=== PATIENT | female | born 1970 | race American Indian/Alaskan Native ===

== ENCOUNTER 2021-01-05 08:16 | Emergency (ER) | payer MEDICARE ==
[2021-01-05] MEDS ORDERED: KETOROLAC 30 MG/1 ML INJ IV ONE (09:39)
[2021-01-05] MEDS ORDERED: SODIUM CHLORIDE 0.9% 1000 ML 1,000 ML IV ONE (09:39)
[2021-01-05] MEDS ORDERED: diphenhydrAMINE 50 MG/ML VIAL IV ONE (09:40)
[2021-01-05] MEDS ORDERED: METOCLOPRAMIDE 10 MG/2 ML INJ IV ONE (09:40)
[2021-01-05 10:23] LABS: Basophils % (Auto) 0.2 % (0.0-1.8); Eosinophils # (Auto) 0.1 K/mm3 (0.0-0.4); Eosinophils % (Auto) 1.2 % (0.0-4.3); Hematocrit 41.7 % (30.3-42.9); Hemoglobin 14.2 gm/dl (10.1-14.3); Lymphocytes # (Auto) 1.4 K/mm3 (1.2-5.4); Mean Corpuscular HGB Conc 34 % (30-34); Mean Corpuscular Volume 87 fl (79-97); Monocytes # (Auto) 0.5 K/mm3 (0.0-0.8); Platelet Count 158 K/mm3 (140-440); Red Cell Distribution Width 13.5 % (13.2-15.2)
[2021-01-05 11:09] LABS: Alanine Aminotransferase 19 units/L (7-56); Albumin 3.9 g/dL (3.9-5); Blood Urea Nitrogen 11 mg/dL (7-17); Calcium 9.4 mg/dL (8.4-10.2); Hemolysis Index 111
[2021-01-05 11:10] LABS: BUN/Creatinine Ratio 22
[2021-01-05 11:13] LABS: Bacteria,Urine 4+ /HPF (Negative); Bilirubin,Urine NEG (Negative); Blood,Urine LG (Negative); Color,Urine Yellow (Yellow); Protein,Urine <15 mg/dL mg/dL (Negative)
[2021-01-05 11:14] LABS: WBC,Urine > 182.0 /HPF (0.0-6.0)
[2021-01-05] MEDS ORDERED: cefTRIAXone/NS 1 GM/50 ML 1 GM/50 ML BAG IV ONE (11:17)
--- NOTE | 2021-01-05 12:13 | Cat Scan Report ---
CT abdomen pelvis w con INDICATION / CLINICAL INFORMATION: abd pain and flank pain OMNIPAQUE 300 100ML. TECHNIQUE: Axial CT imaging of abdomen and pelvis was obtained with IV contrast. Coronal and sagittal reformatte d imaging obtained and reviewed. All CT scans at this location are performed using CT dose reduction for ALARA by means of automated exposure control. COMPARISON: None available. FINDINGS: CT abdomen with contrast demonstrates normal appearance of the liver, spleen, pancreas, right kidney, and adrenal glands. 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 Left kidney is otherwise normal. Gallbladder is present. The gallbladder does contain a few small ga llstones but does not appear to be acutely inflamed. No biliary dilatation noted. CT pelvis with contrast demonstrates air within the urinary bladder. Please confirm that patient had bladder catheterization to account for this finding. No pelvic mass free fluid, or focal inflammatory changes noted. A normal appendix is present in the right lower quadrant. Large amount of stool seen throughout the colon. No evidence of fecal impaction. The remainder of the GI tract is unremarkable. Visualized lung bases are clear. No significant osseous abnormality noted., IMPRESSION: 1. Large amount of stool seen throughout the colon. No fecal impaction identified. 2. No acute finding within the abdomen or pelvis. 3. Cholelithiasis without CT evidence of acute cholecystitis. 4. There is air within the urinary bladder. Please confirm that the patient had bladder catheterizati on recently to account for this finding. Signer Name: Aislinn Koenig MD Signed: 01/05/2021 12:08 PM Workstation Name: [id number]
[2021-01-05 12:18] VITALS: BP 111/75
[2021-01-05] MEDS ORDERED: INSULIN REGULAR, HUMAN 100 UNITS/1 ML IV ONE (12:22)
[2021-01-05] MEDS ORDERED: LACTULOSE 20 GM/30 ML ORAL LIQD PO ONE (12:23)
--- NOTE | 2021-01-05 14:02 | Emergency Department Report ---
ED Abdominal Pain HPI - General Chief Complaint: Abdominal Pain Stated Complaint: BACK/STOMACH PAIN Time Seen by Provider: 01/05/21 09:23 Source: patient Mode of arrival: Ambulatory Limitations: No Limitations - History of Present Illness Initial Comments: This is a 50-year-old female nontoxic, well nourished in appearance, no acute signs of distress presents to the ED with c/o of nausea and left flank pain and abdominal cramping x several days. Patient denies any vomiting. Patient describes abdominal pain as cramping and 3/10 diffuse. Patient denies chest pain, short of breath, fever, hemoptysis, blood in stool, chills, headache, stiff neck, numbness or tingling. Stated has some dysuria. Patient denies any diarrhea. Patient agrees to constipation. Denies any blood in stool. Patient denies any recent travels. Patient stated allergies to hydrocodone and latex. Past medical history includes diabetes which he takes insulin for and has taken today. MD Complaint: abdominal pain, flank pain Location: diffuse Radiation: none Migration to: no migration Severity: mild Severity scale (0 -10): 3 Quality: cramping Consistency: intermittent Improves With: nothing Worsens With: nothing Associated Symptoms: nausea, constipation, dysuria. denies: vomiting, diarrhea, fever, chills, hematemesis, hematochezia, melena, hematuria, anorexia, syncope - Related Data Previous Rx's Medication Instructions Recorded Last Taken Type Ciprofloxacin HCl 500 mg PO BID #20 tablet 01/05/21 Unknown Rx Docusate Sodium [Colace] 100 mg PO DAILY PRN #10 capsule 01/05/21 Unknown Rx Allergies Allergy/AdvReac Type Severity Reaction Status Date / Time hydrocodone Allergy Hives Verified 01/05/21 08:39 latex Allergy Hives Verified 01/05/21 08:39 ED Review of Systems ROS: Stated complaint: BACK/STOMACH PAIN Other details as noted in HPI Comment: All other systems reviewed and negative Constitutional: denies: chills, fever Eyes: denies: eye pain, eye discharge, vision change ENT: denies: ear pain, throat pain Respiratory: denies: cough, shortness of breath, wheezing Cardiovascular: denies: chest pain, palpitations Endocrine: no symptoms reported Gastrointestinal: abdominal pain, nausea, constipation. denies: vomiting, diarrhea, hematemesis, melena, hematochezia Genitourinary: dysuria. denies: urgency, frequency, hematuria, discharge, abnormal menses, dyspareunia Musculoskeletal: denies: back pain, joint swelling, arthralgia Skin: denies: rash, lesions Neurological: denies: headache, weakness, paresthesias Psychiatric: denies: anxiety, depression Hematological/Lymphatic: denies: easy bleeding, easy bruising ED Past Medical Hx - Past Medical History Previous Medical History?: Yes Hx CVA: Yes (2019) Hx Diabetes: Yes Additional medical history: heart palpitations, Hypothyroidism - Surgical History Past Surgical History?: Yes Additional Surgical History: x 3, Partial thyroidectomy - Social History Smoking Status: Never Smoker Substance Use Type: Prescribed - Medications Home Medications: Home Medications Medication Instructions Recorded Confirmed Last Taken Type Ciprofloxacin HCl 500 mg PO BID #20 tablet 01/05/21 Unknown Rx Docusate Sodium [Colace] 100 mg PO DAILY PRN #10 capsule 01/05/21 Unknown Rx ED Physical Exam - General Limitations: No Limitations General appearance: alert, in no apparent distress - Head Head exam: Present: atraumatic, normocephalic - Eye Eye exam: Present: normal appearance - Neck Neck exam: Present: normal inspection, full ROM. Absent: tenderness, meningismus, lymphadenopathy - Respiratory Respiratory exam: Present: normal lung sounds bilaterally. Absent: respiratory distress, wheezes, rales, rhonchi, chest wall tenderness, accessory muscle use, decreased breath sounds, prolonged expiratory - Cardiovascular Cardiovascular Exam: Present: regular rate, normal rhythm, normal heart sounds. Absent: irregular rhythm, systolic murmur, diastolic murmur, rubs, gallop - GI/Abdominal GI/Abdominal exam: Present: soft, tenderness, normal bowel sounds. Absent: distended, guarding, rebound, rigid, diminished bowel sounds - Extremities Exam Extremities exam: Present: normal inspection, full ROM - Back Exam Back exam: Present: normal inspection, full ROM. Absent: tenderness, CVA tenderness (R), CVA tenderness (L), muscle spasm, paraspinal tenderness, vertebral tenderness, rash noted - Neurological Exam Neurological exam: Present: alert, oriented X3 - Psychiatric Psychiatric exam: Present: normal affect, normal mood - Skin Skin exam: Present: warm, dry, intact, normal color. Absent: rash ED Course Vital Signs 01/05/21 01/05/2101/05/21 08:43 12:16 12:24 Temperature 98 F 98.5 F Pulse Rate 103 H 92 H Respiratory 20 14 Rate Blood Pressure 120/79 Blood Pressure 111/75 [Left] O2 Sat by Pulse 99 99 99 Oximetry - Reevaluation(s) Reevaluation #1: 01/05/21 14:06 Patient is speaking in full sentences with no signs of distress noted. ED Medical Decision Making - Lab Data Result diagrams: 01/05/21 09:45 01/05/21 09:45 Lab Results 01/05/21 01/05/21 01/05/21 Range/Units 09:45 09:45 09:45 WBC 7.6 (4.5-11.0) K/mm3 RBC 4.80 (3.65-5.03) M/mm3 Hgb 14.2 (10.1-14.3) gm/dl Hct 41.7 (30.3-42.9) % MCV 87 (79-97) fl MCH 30 (28-32) pg MCHC 34 (30-34) % RDW 13.5 (13.2-15.2) % Plt Count 158 (140-440) K/mm3 Lymph % (Auto) 18.0 (13.4-35.0) % [place] % (Auto) 7.0 (0.0-7.3) % Eos % (Auto) 1.2 (0.0-4.3) % Baso % (Auto) 0.2 (0.0-1.8) % Lymph # (Auto) 1.4 (1.2-5.4) K/mm3 [place] # (Auto) 0.5 (0.0-0.8) K/mm3 Eos # (Auto) 0.1 (0.0-0.4) K/mm3 Baso # (Auto) 0.0 (0.0-0.1) K/mm3 Seg Neutrophils % 73.6 H (40.0-70.0) % Seg Neutrophils # 5.6 (1.8-7.7) K/mm3 Sodium 137 (137-145) mmol/L Potassium 4.8 (3.6-5.0) mmol/L Chloride 102.1 (98-107) mmol/L Carbon Dioxide 23 (22-30) mmol/L Anion Gap 17 mmol/L BUN 11 (7-17) mg/dL Creatinine 0.5 L (0.6-1.2) mg/dL Estimated GFR > 60 ml/min BUN/Creatinine Ratio 22 % Glucose 360 H (65-100) mg/dL POC Glucose (70-105) mg/dL Calcium 9.4 (8.4-10.2) mg/dL Total Bilirubin 0.30 (0.1-1.2) mg/dL AST 21 (5-40) units/L ALT 19 (7-56) units/L Alkaline Phosphatase 81 (35-129) units/L Total Protein 7.6 (6.3-8.2) g/dL Albumin 3.9 (3.9-5) g/dL Albumin/Globulin Ratio 1.1 % Lipase 19 (13-60) units/L HCG, Qual Negative (Negative) Urine Color (Yellow) Urine Turbidity (Clear) Urine pH (5.0-7.0) Ur Specific [place] (1.003-1.030) Urine Protein (Negative) mg/dL Urine Glucose (UA) (Negative) mg/dL Urine Ketones (Negative) mg/dL Urine Blood (Negative) Urine Nitrite (Negative) Urine Bilirubin (Negative) Urine Urobilinogen (<2.0) mg/dL Ur Leukocyte Esterase (Negative) Urine WBC (Auto) (0.0-6.0) /HPF Urine RBC (Auto) (0.0-6.0) /HPF U Epithel Cells (Auto) (0-13.0) /HPF Urine Bacteria (Auto) (Negative) /HPF Urine WBC Clumps /HPF Urine Yeast (Budding) /HPF 01/05/21 01/05/21 Range/Units 10:52 12:30 WBC (4.5-11.0) K/mm3 RBC (3.65-5.03) M/mm3 Hgb (10.1-14.3) gm/dl Hct (30.3-42.9) % MCV (79-97) fl MCH (28-32) pg MCHC (30-34) % RDW (13.2-15.2) % Plt Count (140-440) K/mm3 Lymph % (Auto) (13.4-35.0) % [place] % (Auto) (0.0-7.3) % Eos % (Auto) (0.0-4.3) % Baso % (Auto) (0.0-1.8) % Lymph # (Auto) (1.2-5.4) K/mm3 [place] # (Auto) (0.0-0.8) K/mm3 Eos # (Auto) (0.0-0.4) K/mm3 Baso # (Auto) (0.0-0.1) K/mm3 Seg Neutrophils % (40.0-70.0) % Seg Neutrophils # (1.8-7.7) K/mm3 Sodium (137-145) mmol/L Potassium (3.6-5.0) mmol/L Chloride (98-107) mmol/L Carbon Dioxide (22-30) mmol/L Anion Gap mmol/L BUN (7-17) mg/dL Creatinine (0.6-1.2) mg/dL Estimated GFR ml/min BUN/Creatinine Ratio % Glucose (65-100) mg/dL POC Glucose 243 H (70-105) mg/dL Calcium (8.4-10.2) mg/dL Total Bilirubin (0.1-1.2) mg/dL AST (5-40) units/L ALT (7-56) units/L Alkaline Phosphatase (35-129) units/L Total Protein (6.3-8.2) g/dL Albumin (3.9-5) g/dL Albumin/Globulin Ratio % Lipase (13-60) units/L HCG, Qual (Negative) Urine Color Yellow (Yellow) Urine Turbidity Cloudy (Clear) Urine pH 6.0 (5.0-7.0) Ur Specific [place] 1.027 (1.003-1.030) Urine Protein <15 mg/dl (Negative) mg/dL Urine Glucose (UA) >=500 (Negative) mg/dL Urine Ketones Neg (Negative) mg/dL Urine Blood Lg (Negative) Urine Nitrite Neg (Negative) Urine Bilirubin Neg (Negative) Urine Urobilinogen 2.0 (<2.0) mg/dL Ur Leukocyte Esterase Lg (Negative) Urine WBC (Auto) > 182.0 H (0.0-6.0) /HPF Urine RBC (Auto) 11.0 (0.0-6.0) /HPF U Epithel Cells (Auto) 20.0 H (0-13.0) /HPF Urine Bacteria (Auto) 4+ (Negative) /HPF Urine WBC Clumps 2+ /HPF Urine Yeast (Budding) 2+ /HPF - Radiology Data [facility] [address] [place] [address] Cat Scan Report Signed Patient: LEONIDAS RINCON MR# : [id number] : 1970 Acct:[id number] Age/Sex: 50 / F ADM Date: 01/05/21 Loc: ED Attending Dr: Ordering Physician: FELTON BENSON NP Date of Service: 01/05/21 Procedure(s): CT abdomen pelvis w con Accession Number(s): [id number] cc: FELTON BENSON NP CT abdomen pelvis w con INDICATION / CLINICAL INFORMATION: abd pain and flank pain OMNIPAQUE 300 100ML. TECHNIQUE: Axial CT imaging of abdomen and pelvis was obtained with IV contrast. Coronal and sagittal reformatted imaging obtained and reviewed. All CT scans at this location are performed using CT dose reduction for ALARA by means of automated exposure control. COMPARISON: None available. FINDINGS: CT abdomen with contrast demonstrates normal appearance of the liver, spleen, pancreas, right kidney, and adrenal glands. 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 Left kidney is otherwise normal. Gallbladder is present. The gallbladder does contain a few small gallstones but does not appear to be acutely inflamed. No biliary dilatation noted. CT pelvis with contrast demonstrates air within the urinary bladder. Please confirm that patient had bladder catheterization to account for this finding. No pelvic mass free fluid, or focal inflammatory changes noted. A normal appendix is present in the right lower quadrant. Large amount of stool seen throughout the colon. No evidence of fecal impaction. The remainder of the GI tract is unremarkable. Visualized lung bases are clear. No significant osseous abnormality noted., IMPRESSION: 1. Large amount of stool seen throughout the colon. No fecal impaction identified. 2. No acute finding within the abdomen or pelvis. 3. Cholelithiasis without CT evidence of acute cholecystitis. 4. There is air within the urinary bladder. Please confirm that the patient had bladder catheterization recently to account for this finding. Signer Name: Aislinn Koenig MD Signed: 01/05/2021 12:08 PM Workstation Name: [id number] Transcribed By: Dictated By: Aislinn Koenig MD Electronically Authenticated By: Aislinn Koenig MD Signed Date/Time: 01/05/21 1208 DD/ 1205 TD/TT: - Medical Decision Making This is a 50-year-old female that presents with UTI and constipation. Patient is stable and was examined by me. Negative signs of symptoms of appendicitis. Labs obtained. UA obtained. CT of abdomen obtained and dictated by the radiologist. Patient is notified of the report with no questions noted by the patient. Vital signs are stable prior to discharge. Patient received medical treatment in the ED which patient stated symptoms has resovled and subsided. Was instructed note to operate any machinery due to possible drowsiness and stated someone will drive the patient home. A by mouth challenge has been obtained and patient tolerated well with no nausea vomiting. Patient stated had a large bowel movement in the ED after treatment. Patient was also instructed to Follow-up with a primary care doctor in 3-5 days or if symptoms worsen and continue return to emergency room as soon as possible. At time of discharge, the patient does not seem toxic or ill in appearance. No acute signs of distress noted. Patient agrees to discharge treatment plan of care. No further questions noted by the patient. Critical care attestation.: If time is entered above; I have spent that time in minutes in the direct care of this critically ill patient, excluding procedure time. ED Disposition Clinical Impression: Constipation Qualifiers: Constipation type: unspecified constipation type Qualified Code(s): K59.00 - Constipation, unspecified UTI (urinary tract infection) Qualifiers: Urinary tract infection type: acute cystitis Hematuria presence: without hematu jayy Qualified Code(s): N30.00 - Acute cystitis without hematuria Disposition: HOME / SELF CARE / HOMELESS Is pt being admited?: No Does the pt Need Aspirin: No Condition: Stable Instructions: Abdominal Pain (ED), Constipation, Adult, Urinary Tract Infection, Adult, [id number], High-Fiber Diet Additional Instructions: Follow-up with a primary care doctor in 3-5 days or if symptoms worsen and continue return to emergency room as soon as possible. Prescriptions: Ciprofloxacin HCl 500 mg PO BID #20 tablet Docusate Sodium [Colace] 100 mg PO DAILY PRN #10 capsule PRN Reason: Constipation Referrals: HARPER PALAFOX [Other] - 3-5 Days PRIMARY CAREMD [Referring] - 3-5 Days MYRA MENDOZA MD [Staff Physician] - 3-5 Days Time of Disposition: 14:14
[2021-01-05] MEDS ORDERED: MAGNESIUM CITRATE 300 ML ORAL LIQD PO ONE (14:08)
== END 2021-01-05 14:21 | disposition home or self-care (01) ==
LOC: ED 08:16
DX: N39.0 Urinary tract infection, site not specified (principal); K59.00 Constipation, unspecified; Z86.73 Personal history of transient ischemic attack (TIA), and cerebral infarction without residual deficits; E11.8 Type 2 diabetes mellitus with unspecified complications; R00.2 Palpitations; E03.9 Hypothyroidism, unspecified; Z98.890 Other specified postprocedural states; Z88.5 Allergy status to narcotic agent; Z91.040 Latex allergy status
CPT/HCPCS: 36415; 74177; 80053; 81001; 82962; 83690; 84703; 85025; 96361; 96365; 96375; 99284; J0696; J1200; J1885; J2765; J7030; Q9967

== ENCOUNTER 2021-04-17 11:30 | Emergency (ER) | payer MEDICARE ==
[2021-04-17] MEDS ORDERED: ACETAMINOPHEN 325 MG TAB PO STA (14:09)
[2021-04-17] MEDS ORDERED: ALPRAZolam 0.5 MG TAB PO ONE (14:10)
--- NOTE | 2021-04-17 14:10 | Emergency Department Report ---
ED General Adult HPI - General Chief complaint: Arrhythmia/Palpitations Stated complaint: BODY CRAMPS/ HEART RACING PUI?: No Time Seen by Provider: 04/17/21 13:56 Source: patient, RN notes reviewed Mode of arrival: Ambulatory Limitations: No Limitations - History of Present Illness Initial comments: This patient is a pleasant and cooperative 50-year-old female, who to me endorses a past medical history of diabetes, hypertension, and hypothyroidism. She is also COVID-19 vaccinated. The patient presents to the ER today with complaint of palpitations, and cramping on her bilateral lower abdominal quadrants, bilateral hands and forearms, and bilateral lower extremities. The patient currently denies severe headache, neck pain, denies chest pain, denies upper abdominal pain, denies vomiting, diaphoresis, exertional shortness of breath, loss of taste and smell. She also denies Covid symptoms and urinary symptoms. She is not really taking anything ahym-byw-fpudntc for this. She reports that her medications have not recently been changed or adjusted. She reports that she feels a little bit anxious, but otherwise back to her baseline. Patient specifically denies travel, surgery, immobilization, , oral contraceptive use, DVT/PE risk factors. -: Gradual, days(s) Location: left, right, upper extremity, lower extremity Quality: aching, other (Aching and cramping) Consistency: intermittent Improves with: none Worsens with: none - Related Data Previous Rx's Medication Instructions Recorded Last Taken Type Ciprofloxacin HCl 500 mg PO BID #20 tablet 01/05/21 Unknown Rx Docusate Sodium [Colace] 100 mg PO DAILY PRN #10 capsule 01/05/21 Unknown Rx Allergies Allergy/AdvReac Type Severity Reaction Status Date / Time hydrocodone Allergy Hives Verified 04/17/21 12:22 latex Allergy Hives Verified 04/17/21 12:22 ED Review of Systems ROS: Stated complaint: BODY CRAMPS/ HEART RACING Other details as noted in HPI Constitutional: denies: fever Eyes: denies: eye discharge ENT: denies: epistaxis Respiratory: denies: cough Cardiovascular: palpitations. denies: chest pain Gastrointestinal: denies: nausea, vomiting, diarrhea, hematemesis, melena, hematochezia Genitourinary: denies: dysuria Musculoskeletal: arthralgia, myalgia Neurological: weakness. denies: numbness, paresthesias Psychiatric: anxiety ED Past Medical Hx - Past Medical History Hx CVA: Yes (2019) Hx Diabetes: Yes Additional medical history: heart palpitations, Hypothyroidism - Surgical History Additional Surgical History: x 3, Partial thyroidectomy - Social History Smoking Status: Never Smoker Substance Use Type: Prescribed - Medications Home Medications: Home Medications Medication Instructions Recorded Confirmed Last Taken Type Ciprofloxacin HCl 500 mg PO BID #20 tablet 01/05/21 Unknown Rx Docusate Sodium [Colace] 100 mg PO DAILY PRN #10 capsule 01/05/21 Unknown Rx ED Physical Exam - General Limitations: No Limitations General appearance: alert, anxious - Head Head exam: Present: atraumatic, normocephalic - Eye Eye exam: Present: normal appearance, EOMI. Absent: nystagmus - ENT ENT exam: Present: normal exam, normal orophraynx, mucous membranes moist, normal external ear exam - Neck Neck exam: Present: normal inspection, full ROM. Absent: tenderness, meningismus - Respiratory Respiratory exam: Present: normal lung sounds bilaterally. Absent: respiratory distress, wheezes, rales, rhonchi, stridor, decreased breath sounds - Cardiovascular Cardiovascular Exam: Present: normal rhythm, tachycardia. Absent: bradycardia, irregular rhythm, normal heart sounds, systolic murmur, diastolic murmur, rubs, gallop - GI/Abdominal GI/Abdominal exam: Present: soft, normal bowel sounds. Absent: distended, tenderness, guarding, rebound, rigid, pulsatile mass - Extremities Exam Extremities exam: Present: normal inspection, full ROM, other (2+ pulses noted in the bilateral upper and lower extremities. There is no palpable cord. negative Homans sign. Muscular compartments are soft. The pelvis is stable.). Absent: pedal edema, calf tenderness - Back Exam Back exam: Present: normal inspection, full ROM. Absent: tenderness, CVA tenderness (R), CVA tenderness (L), paraspinal tenderness, vertebral tenderness - Neurological Exam Neurological exam: Present: alert, oriented X3, normal gait, reflexes normal, other (No facial droop. Tongue midline. Extraocular movements intact bilaterally. Facial sensation intact to light touch in V1, V2, V3 distribution bilaterally. 5 and a 5 strength in 4 extremities. Sensation intact to light touch in 4 extremities.). Absent: motor sensory deficit - Psychiatric Psychiatric exam: Present: anxious - Skin Skin exam: Present: warm, dry, intact, normal color. Absent: rash ED Course Vital Signs 04/17/21 04/17/21 12:18 15:44 Temperature 98.6 F 98.3 F Pulse Rate 112 H 74 Respiratory 18 16 Rate Blood Pressure 121/82 87/55 [Left] O2 Sat by Pulse 99 98 Oximetry - Reevaluation(s) Reevaluation #1: 04/17/21 15:13 Differential diagnosis, including but not limited to: Dehydration, anxiety, muscular cramps, electrolyte derangement, thyroid derangement Assessment and plan: 50-year-old female, who is afebrile, with reassuring vital signs, who is clinically sober at this time, who is not currently tachypneic or hypoxic, who denies DVT and pulmonary embolism risk factors, who is low risk by Wells criteria for pulmonary embolism, presenting to the ER today with a complaint of abdominal cramping, palpitations, tachycardia, and upper and lower extremity cramping. While initially tachycardic, with verbal calming techniques, heart rate seems to have improved. Screening laboratory studies pending. Abdomen soft and benign, without rebound, guarding or peritoneal signs. Patient reports being on carvedilol at home. We will treat her symptoms. I also personally provided this patient with a cup of ice water, which she was able to drink without difficulty Reassess after laboratory studies have resulted. 04/17/21 15:40 Patient seen and reexamined. She feels much improved. Laboratory studies essentially unremarkable, with exception of blood glucose of 257, and CK 600. Patient states her glucose is typically below 200. CK is elevated, but will decrease on its own with rest and oral hydration. Discussed diet lifestyle modifications with patient. She articulates understanding. Repeat heart rate 84 bpm. ED Medical Decision Making - Lab Data Result diagrams: 04/17/21 14:33 04/17/21 14:33 Vital Signs 04/17/21 12:18 Temperature 98.6 F Pulse Rate 112 H Respiratory 18 Rate Blood Pressure 121/82 [Left] O2 Sat by Pulse 99 Oximetry Lab Results 04/17/21 04/17/21 Range/Units 14:33 14:33 WBC 4.4 L (4.5-11.0) K/mm3 RBC 5.13 H (3.65-5.03) M/mm3 Hgb 14.7 H (10.1-14.3) gm/dl Hct 44.6 H (30.3-42.9) % MCV 87 (79-97) fl MCH 29 (28-32) pg MCHC 33 (30-34) % RDW 14.2 (13.2-15.2) % Plt Count 149 (140-440) K/mm3 Lymph % (Auto) 23.3 (13.4-35.0) % [place] % (Auto) 12.3 H (0.0-7.3) % Eos % (Auto) 1.5 (0.0-4.3) % Baso % (Auto) 0.4 (0.0-1.8) % Lymph # (Auto) 1.0 L (1.2-5.4) K/mm3 [place] # (Auto) 0.5 (0.0-0.8) K/mm3 Eos # (Auto) 0.1 (0.0-0.4) K/mm3 Baso # (Auto) 0.0 (0.0-0.1) K/mm3 Seg Neutrophils % 62.5 (40.0-70.0) % Seg Neutrophils # 2.8 (1.8-7.7) K/mm3 PT 12.4 (12.2-14.9) Sec. INR 0.83 L (0.87-1.13) Lab Results 04/17/21 04/17/21 04/17/21 Range/Units 14:33 14:33 14:33 WBC 4.4 L (4.5-11.0) K/mm3 RBC 5.13 H (3.65-5.03) M/mm3 Hgb 14.7 H (10.1-14.3) gm/dl Hct 44.6 H (30.3-42.9) % MCV 87 (79-97) fl MCH 29 (28-32) pg MCHC 33 (30-34) % RDW 14.2 (13.2-15.2) % Plt Count 149 (140-440) K/mm3 Lymph % (Auto) 23.3 (13.4-35.0) % [place] % (Auto) 12.3 H (0.0-7.3) % Eos % (Auto) 1.5 (0.0-4.3) % Baso % (Auto) 0.4 (0.0-1.8) % Lymph # (Auto) 1.0 L (1.2-5.4) K/mm3 [place] # (Auto) 0.5 (0.0-0.8) K/mm3 Eos # (Auto) 0.1 (0.0-0.4) K/mm3 Baso # (Auto) 0.0 (0.0-0.1) K/mm3 Seg Neutrophils % 62.5 (40.0-70.0) % Seg Neutrophils # 2.8 (1.8-7.7) K/mm3 PT (12.2-14.9) Sec. INR (0.87-1.13) Sodium 137 (137-145) mmol/L Potassium 3.8 (3.6-5.0) mmol/L Chloride 96.9 L (98-107) mmol/L Carbon Dioxide 28 (22-30) mmol/L Anion Gap 16 mmol/L BUN 14 (7-17) mg/dL Creatinine 0.6 (0.6-1.2) mg/dL Estimated GFR > 60 ml/min BUN/Creatinine Ratio 23 % Glucose 257 H (65-100) mg/dL Calcium 9.5 (8.4-10.2) mg/dL Magnesium 1.90 (1.7-2.3) mg/dL Total Bilirubin 0.30 (0.1-1.2) mg/dL AST 16 (5-40) units/L ALT 16 (7-56) units/L Alkaline Phosphatase 80 (35-129) units/L Total Creatine Kinase 606 H (30-135) units/L Troponin T (0.00-0.029) ng/mL Total Protein 7.3 (6.3-8.2) g/dL Albumin 3.8 L (3.9-5) g/dL Albumin/Globulin Ratio 1.1 % TSH 2.970 (0.270-4.200) mlU/mL 04/17/21 04/17/21 Range/Units 14:33 14:33 WBC (4.5-11.0) K/mm3 RBC (3.65-5.03) M/mm3 Hgb (10.1-14.3) gm/dl Hct (30.3-42.9) % MCV (79-97) fl MCH (28-32) pg MCHC (30-34) % RDW (13.2-15.2) % Plt Count (140-440) K/mm3 Lymph % (Auto) (13.4-35.0) % [place] % (Auto) (0.0-7.3) % Eos % (Auto) (0.0-4.3) % Baso % (Auto) (0.0-1.8) % Lymph # (Auto) (1.2-5.4) K/mm3 [place] # (Auto) (0.0-0.8) K/mm3 Eos # (Auto) (0.0-0.4) K/mm3 Baso # (Auto) (0.0-0.1) K/mm3 Seg Neutrophils % (40.0-70.0) % Seg Neutrophils # (1.8-7.7) K/mm3 PT 12.4 (12.2-14.9) Sec. INR 0.83 L (0.87-1.13) Sodium (137-145) mmol/L Potassium (3.6-5.0) mmol/L Chloride (98-107) mmol/L Carbon Dioxide (22-30) mmol/L Anion Gap mmol/L BUN (7-17) mg/dL Creatinine (0.6-1.2) mg/dL Estimated GFR ml/min BUN/Creatinine Ratio % Glucose (65-100) mg/dL Calcium (8.4-10.2) mg/dL Magnesium (1.7-2.3) mg/dL Total Bilirubin (0.1-1.2) mg/dL AST (5-40) units/L ALT (7-56) units/L Alkaline Phosphatase (35-129) units/L Total Creatine Kinase (30-135) units/L Troponin T < 0.010 (0.00-0.029) ng/mL Total Protein (6.3-8.2) g/dL Albumin (3.9-5) g/dL Albumin/Globulin Ratio % TSH (0.270-4.200) mlU/mL Vital Signs 04/17/21 04/17/21 12:18 15:44 Temperature 98.6 F 98.3 F Pulse Rate 112 H 74 Respiratory 18 16 Rate Blood Pressure 121/82 87/55 [Left] O2 Sat by Pulse 99 98 Oximetry - EKG Data -: EKG Interpreted by Pa EKG shows normal: sinus rhythm Rate: tachycardia - EKG Data When compared to previous EKG there are: previous EKG unavailable 04/17/21 15:13 The EKG is interpreted at 12: 29 Sinus rhythm, tachycardia, rate 112 bpm. Left axis deviation, normal P wave axis, intervals otherwise within normal limits. There is motion artifact in V1. This is an abnormal EKG. This is not a STEMI. There is no prior for comparison Critical care attestation.: If time is entered above; I have spent that time in minutes in the direct care of this critically ill patient, excluding procedure time. ED Disposition Clinical Impression: Muscle cramps, Palpitations, Hyperglycemia Disposition: HOME / SELF CARE / HOMELESS Is pt being admited?: No Does the pt Need Aspirin: No Condition: Good Instructions: Muscle Cramps and Spasms, [id number] Additional Instructions: Please continue outpatient medications. Please make certain to adhere to a d iabetic appropriate diet. Avoid consumption of excessive starches and carbohydrates. Patient may take adfr-[id number] Tylenol and ibuprofen as needed for physical pain. Recommend follow-up with your outpatient primary care doctor within the next 2 weeks. Participate in physical activities as tolerated. Please return to the emergency room right away with new pain, worsened pain, migration of pain, projectile vomiting, change in mental status, confusion, inability tolerate liquid feeds, new, worsened or different symptoms not present on the initial emergency room evaluation Referrals: [facility] [Provider Group] - 7-10 days
[2021-04-17] MEDS ORDERED: carvediloL 6.25 MG TAB PO ONE (14:27)
[2021-04-17 15:02] LABS: Basophils % (Auto) 0.4 % (0.0-1.8); Eosinophils # (Auto) 0.1 K/mm3 (0.0-0.4); Eosinophils % (Auto) 1.5 % (0.0-4.3); Hematocrit 44.6 % (30.3-42.9); Hemoglobin 14.7 gm/dl (10.1-14.3); Lymphocytes % (Auto) 23.3 % (13.4-35.0); Mean Corpuscular HGB Conc 33 % (30-34); Mean Corpuscular Volume 87 fl (79-97); Monocytes # (Auto) 0.5 K/mm3 (0.0-0.8); Monocytes % (Auto) 12.3 % (0.0-7.3); Platelet Count 149 K/mm3 (140-440); Red Blood Count 5.13 M/mm3 (3.65-5.03); Red Cell Distribution Width 14.2 % (13.2-15.2)
[2021-04-17 15:10] LABS: INR 0.83 (0.87-1.13)
[2021-04-17 15:13] LABS: Alanine Aminotransferase 16 units/L (7-56); Albumin 3.8 g/dL (3.9-5); Blood Urea Nitrogen 14 mg/dL (7-17); Calcium 9.5 mg/dL (8.4-10.2); Hemolysis Index 11
[2021-04-17 15:32] LABS: BUN/Creatinine Ratio 23
[2021-04-17 15:46] VITALS: BP 87/55
--- NOTE | 2021-04-21 10:26 | Electrocardiograph Report ---
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
== END 2021-04-17 16:08 | disposition home or self-care (01) ==
LOC: ED 11:30
DX: R25.2 Cramp and spasm (principal); R00.2 Palpitations; E11.65 Type 2 diabetes mellitus with hyperglycemia; Z88.5 Allergy status to narcotic agent; Z91.040 Latex allergy status
CPT/HCPCS: 36415; 80053; 82550; 83735; 84443; 84484; 85025; 85610; 93005; 99283

== ENCOUNTER 2021-12-13 15:18 | Emergency (ER) | payer MEDICARE ==
[2021-12-13 17:24] LABS: Basophils # (Auto) 0.1 K/mm3 (0.0-0.1); Basophils % (Auto) 0.7 % (0.0-1.8); Eosinophils # (Auto) 0.1 K/mm3 (0.0-0.4); Eosinophils % (Auto) 1.1 % (0.0-4.3); Hematocrit 40.2 % (30.3-42.9); Hemoglobin 13.8 gm/dl (10.1-14.3); Lymphocytes # (Auto) 2.6 K/mm3 (1.2-5.4); Lymphocytes % (Auto) 28.7 % (13.4-35.0); Mean Corpuscular HGB Conc 34 % (30-34); Mean Corpuscular Volume 86 fl (79-97); Monocytes # (Auto) 0.6 K/mm3 (0.0-0.8); Monocytes % (Auto) 6.7 % (0.0-7.3); Platelet Count 165 K/mm3 (140-440); Red Blood Count 4.66 M/mm3 (3.65-5.03); Red Cell Distribution Width 13.7 % (13.2-15.2)
[2021-12-13 17:46] LABS: Alanine Aminotransferase 14 units/L (7-56); Albumin 3.9 g/dL (3.9-5); Blood Urea Nitrogen 15 mg/dL (7-17); Calcium 9.4 mg/dL (8.4-10.2); Hemolysis Index 13
[2021-12-13 18:04] LABS: BUN/Creatinine Ratio 25
[2021-12-13] MEDS ORDERED: ACETAMINOPHEN 500 MG TAB PO ONE (22:58)
[2021-12-13] MEDS ORDERED: IBUPROFEN 600 MG TAB PO ONE (22:58)
[2021-12-13] MEDS ORDERED: CLINDAMYCIN 300 MG CAP PO ONE (22:58)
[2021-12-13] MEDS ORDERED: SULFAMETHOXAZOLE/TRIMETHOPRIM 800/160MG DS TAB PO ONE (22:59)
--- NOTE | 2021-12-13 23:17 | Emergency Department Report ---
ED General Adult HPI - General Chief complaint: Abdominal Pain Stated complaint: BITE Source: patient Mode of arrival: Ambulatory Limitations: No Limitations - History of Present Illness Initial comments: Patient is a 51-year-old -Malag[place] female with a history of hypertension and CVA as well as ttv-fqkdvcj-hinwrfxjz diabetes who presents to the ED with complaint of acute onset persistent painful swelling mild erythematous maculopapular rash on gluteal cleft for the last 2 days. Patient states that the pain is constant and persistent and especially worse with she sits down or lays down. Patient denies fever, chills, nausea and vomiting, chest pain and shortness of breath, numbness and tingling or weakness of upper and lower extremities bilaterally or change in vision. MD Complaint: Swollen painful rash on buttocks -: Gradual, days(s) (2) Location: buttocks Radiation: non-radiation Severity scale (0 -10): 7 Quality: aching, sharp Consistency: constant Improves with: none Worsens with: none Associated Symptoms: denies other symptoms, rash (Swollen, mild erythematous maculopapular rash on gluteal cleft). denies: confusion, chest pain, cough, diaphoresis, fever/chills, headaches, loss of appetite, malaise, nausea/vomiting, shortness of breath, syncope, weakness, other Treatments Prior to Arrival: none - Related Data Previous Rx's Medication Instructions Recorded Last Taken Type Ciprofloxacin HCl 500 mg PO BID #20 tablet 01/05/21 Unknown Rx Docusate Sodium [Colace] 100 mg PO DAILY PRN #10 capsule 01/05/21 Unknown Rx Ibuprofen [Motrin] 800 mg PO Q8HR PRN #30 tablet 12/13/21 Unknown Rx Sulfamethoxazole/Trimethoprim 1 each PO Q12H #20 tab 12/13/21 Unknown Rx [Bactrim DS TAB] clindamycin HCL [Clindamycin HCl] 300 mg PO Q8H #30 cap 12/13/21 Unknown Rx Allergies Allergy/AdvReac Type Severity Reaction Status Date / Time hydrocodone Allergy Hives Verified 12/13/21 15:47 latex Allergy Hives Verified 12/13/21 15:47 ED Review of Systems ROS: Stated complaint: BITE Other details as noted in HPI Constitutional: denies: chills, fever Eyes: denies: eye pain, eye discharge, vision change ENT: denies: ear pain, throat pain Respiratory: denies: cough, shortness of breath, wheezing Cardiovascular: denies: chest pain, palpitations Endocrine: no symptoms reported Gastrointestinal: denies: abdominal pain, nausea, vomiting, diarrhea Genitourinary: denies: urgency, dysuria, discharge Musculoskeletal: denies: back pain, joint swelling, arthralgia Skin: rash (Swollen, painful mild erythematous maculopapular rash on gluteal cleft), change in color. denies: lesions, change in hair/nails, pruritus Neurological: denies: headache, weakness, paresthesias Psychiatric: denies: anxiety, depression Hematological/Lymphatic: denies: easy bleeding, easy bruising ED Past Medical Hx - Past Medical History Hx CVA: Yes (2019) Hx Diabetes: Yes Additional medical history: heart palpitations, Hypothyroidism - Surgical History Additional Surgical History: x 3, Partial thyroidectomy - Social History Smoking Status: Never Smoker Substance Use Type: Prescribed - Medications Home Medications: Home Medications Medication Instructions Recorded Confirmed Last Taken Type Ciprofloxacin HCl 500 mg PO BID #20 tablet 01/05/21 Unknown Rx Docusate Sodium [Colace] 100 mg PO DAILY PRN #10 capsule 01/05/21 Unknown Rx Ibuprofen [Motrin] 800 mg PO Q8HR PRN #30 tablet 12/13/21 Unknown Rx Sulfamethoxazole/Trimethoprim 1 each PO Q12H #20 tab 12/13/21 Unknown Rx [Bactrim DS TAB] clindamycin HCL [Clindamycin HCl] 300 mg PO Q8H #30 cap 12/13/21 Unknown Rx ED Physical Exam - General Limitations: No Limitations General appearance: alert, in no apparent distress - Head Head exam: Present: atraumatic, normocephalic, normal inspection - Eye Eye exam: Present: normal appearance, PERRL, EOMI Pupils: Present: normal accommodation - ENT ENT exam: Present: normal exam, normal orophraynx, mucous membranes moist, TM's normal bilaterally, normal external ear exam - Neck Neck exam: Present: normal inspection, full ROM. Absent: tenderness - Respiratory Respiratory exam: Present: normal lung sounds bilaterally. Absent: respiratory distress, wheezes, rales, rhonchi, chest wall tenderness, accessory muscle use, decreased breath sounds, prolonged expiratory - Cardiovascular Cardiovascular Exam: Present: normal rhythm, tachycardia, normal heart sounds. Absent: systolic murmur, diastolic murmur, rubs, gallop - GI/Abdominal GI/Abdominal exam: Present: soft, normal bowel sounds. Absent: tenderness, guarding, rebound, hyperactive bowel sounds, hypoactive bowel sounds, organomegaly, mass - Extremities Exam Extremities exam: Present: normal inspection, full ROM, normal capillary refill. Absent: tenderness - Back Exam Back exam: Present: normal inspection, full ROM. Absent: tenderness, CVA tenderness (R), CVA tenderness (L), muscle spasm, paraspinal tenderness, vertebral tenderness - Neurological Exam Neurological exam: Present: alert, oriented X3, CN II-XII intact, normal gait, reflexes normal - Psychiatric Psychiatric exam: Present: normal affect, normal mood - Skin Skin exam: Present: warm, dry, intact, normal color, rash (Mild erythematous maculopapular nonfluctuant rash on gluteal cleft with localized tenderness ), erythema. Absent: urticaria, vesicles, petechiae, pallor, abrasion, other ED Course Vital Signs 12/13/21 12/13/21 15:38 20:55 Temperature 98.8 F 98.7 F Pulse Rate 108 H 68 Respiratory 18 18 Rate Blood Pressure 125/78 123/79 [Left] O2 Sat by Pulse 99 97 Oximetry ED Medical Decision Making - Lab Data Result diagrams: 12/13/21 17:11 12/13/21 17:11 - Medical Decision Making This is a 51-year-old -[place]ag[place] female with a history of hypertension and CVA as well as usn-nghfswn-onahdlupp diabetes who presents to the ED with c omplaint of acute onset persistent painful swelling mild erythematous maculopapular rash on gluteal cleft for the last 2 days. Patient states that the pain is constant and persistent and especially worse with she sits down or lays down. In the ED, patient is alert and oriented x3 and is not in any distress. Lab test results were reviewed and are all nonactionable. Patient was treated for pain in the ED and also received initial oral antibiotics. Patient was discharged home on pain medications and antibiotics and advised to follow-up with her primary care physician in 7 to 10 days for reevaluation or return to the ED immediately if symptoms get worse. - Differential Diagnosis cellulitis; folliculitis; cutaneous abscess Critical care attestation.: If time is entered above; I have spent that time in minutes in the direct care of this critically ill patient, excluding procedure time. ED Disposition Clinical Impression: Cellulitis of buttock, Cutaneous abscess of buttock Disposition: HOME / SELF CARE / HOMELESS Is pt being admited?: No Does the pt Need Aspirin: No Condition: Stable Instructions: Abdominal Pain (ED), Skin Abscess, Vjls-wd-Honj, Cellulitis, A dult, Hgin-ga-Kwga Additional Instructions: Take medication with food, drink plenty of fluids, follow-up with your primary care physician in 7 to 10 days for reevaluation. Return to the ED immediately if symptoms get worse. Prescriptions: Sulfamethoxazole/Trimethoprim [Bactrim DS TAB] 1 each PO Q12H #20 tab clindamycin HCL [Clindamycin HCl] 300 mg PO Q8H #30 cap Ibuprofen [Motrin] 800 mg PO Q8HR PRN #30 tablet PRN Reason: Pain , Severe (7-10) Referrals: [facility] [Provider Group] - 7-10 days Forms: Work/School Release Form(ED) Time of Disposition: 23:17 Print Language: ARMENIAN
[2021-12-13 23:40] LABS: Bacteria,Urine 1+ /HPF (Negative); Mucus,Urine FEW /HPF
[2021-12-13 23:52] LABS: Color,Urine Yellow (Yellow)
[2021-12-14 00:20] VITALS: BP 121/73
== END 2021-12-14 01:28 | disposition home or self-care (01) ==
LOC: ED 15:18
DX: L03.317 Cellulitis of buttock (principal); L02.31 Cutaneous abscess of buttock; Z91.040 Latex allergy status; Z88.6 Allergy status to analgesic agent; E11.9 Type 2 diabetes mellitus without complications
CPT/HCPCS: 36415; 80053; 81001; 85025; 99283